=== PATIENT | female | born 1980 | race Caucasian/White ===

== ENCOUNTER 2020-08-09 15:23 | Emergency (ER) | payer OTHER ==
[~2020-08-09] VITALS: Ht 152.4 cm; Wt 77.1 kg
[~2020-08-09 15:23] MED LIST: SYNTHROID50 MCG ORAL; TRAMADOL HCL50 MG ORAL
[2020-08-09] MEDS ORDERED: birth control (15:36)
[2020-08-09] MEDS ORDERED: ATORVASTATIN CA10 MG ORAL (15:36)
[2020-08-09 15:40] VITALS: BP 123/77
[2020-08-09] MEDS ORDERED: BUSPAR10 MG ORAL (15:52)
--- NOTE | 2020-08-09 15:57 | Emergency Room Report ---
History of Present Illness General Chief Complaint: General Complaint Source: Patient Present Illness HPI 40 YO female with pmhx of hypothyroid presents to the ED c/o generalized emotional stress and anxiety. Pt. describes loosing her job, federal aid, her car, and having issues with her housing. Pt. denies hx of anxiety or depression. She denies SI or HI. She denies PSA's or previous psychiatric hospitalizations. She denies familial psych. hx. She reports she is currently taking Synthroid. She reports seeing a "spiritual healer" but not having any relief of her symptoms. Pt. is requesting medication to help reduce her anxiety. She denies CP, palpitations, SOB, wheezing, dizziness, syncope or NG. She denies or suspicion of . She denies currently attempting to become . She reports minimal help from her family. She also reports feeling "so overwhelmed, she is unable to complete daily tasks easily". Pt. denies physical symptoms and states her symptoms manifest only emotionally. She admits to being tearful on occasion. She denies ETOH or illicit drug use. Allergies: Coded Allergies: PENICILLINS (Verified Allergy, Unknown, 02/14/16) COVID-19 Screening Contact w/high risk pt: No Experienced COVID-19 symptoms?: No COVID-19 Testing performed FOOD AND BEVERAGE CONTROLLER: No Patient History Past Medical History: see triage record Past Surgical History: none Now: No Reviewed Nursing Documentation: PMH: Agreed; PSxH: Agreed Nursing Documentation-PMH Past Medical History: No History, Except For History Of Psychiatric Problem: Yes - OCD, depression Review of Systems All Other Systems: negative except mentioned in HPI Physical Exam Vital Signs Date Time Temp Pulse Resp B/P (MAP) Pulse Ox O2 Delivery O2 Flow Rate FiO2 08/09/20 15:30 97.5 84 17 123/77 (92) 99 Room Air Sp02 EP Interpretation: reviewed, normal General Appearance: no apparent distress, alert, GCS 15, non-toxic Head: normocephalic, atraumatic Eyes: bilateral eye normal inspection, bilateral eye PERRL ENT: hearing grossly normal, normal voice Neck: full range of motion Respiratory: chest non-tender, lungs clear, normal breath sounds, speaking full sentences Cardiovascular #1: regular rate, rhythm Genitourinary: normal inspection Musculoskeletal: normal range of motion, gait/station normal, non-tender Neurologic: alert, motor strength/tone normal, oriented x3, sensory intact, responsive, speech normal Psychiatric: judgement/insight normal, memory normal, no suicidal/homicidal ideation, no delusions, anxious - mildly Skin: no rash, normal color, other - no scars or other skin signs that are suggestive of PSA's or self harm Medical Decision Making PA Attestation Dr. Dubois is my supervising Physician whom patient management has been discussed with. Diagnostic Impression: Primary Impression: Anxiety ER Course 40 YO female with pmhx of hypothyroid presents to the ED c/o generalized em otional stress and anxiety. Pt. describes loosing her job, federal aid, her car, and having issues with her housing. Pt. denies hx of anxiety or depression. She denies SI or HI. She denies PSA's or previous psychiatric hospitalizations. She denies familial psych. hx. She reports she is currently taking Synthroid. She reports seeing a "spiritual healer" but not having any relief of her symptoms. Pt. is requesting medication to help reduce her anxiety. She denies CP, palpitations, SOB, wheezing, dizziness, syncope or NG. She denies or suspicion of . She denies currently attempting to become . She reports minimal help from her family. She also reports feeling "so overwhelmed, she is unable to complete daily tasks easily". Pt. denies physical symptoms and states her symptoms manifest only emotionally. She admits to being tearful on occasion. She denies ETOH or illicit drug use. Ddx considered but are not limited to anxiety, IL, PE, asthma, thyroid storm, hyperthyroid, EPS, need for synthroid adjustment, Situational anxiety. Vital signs: are WNL, pt. is afebrile H&PE are most consistent with increased anxiety as a result of economical hardships during current pandemic. She is not tearful during exam and no visible scars to be suspicious for PSA'S/ self harm. She is well dressed. ORDERS: none required at this time, the diagnosis is clinical ED INTERVENTIONS: ' - none required at this time. Pt. is having mild symptoms. d/w pt. she needs psychiatric eval and to see her pmd to check thyroid levels. D/w pt. temp. anti-anxiety rx for a medication known to be safer than its alternatives which are known as addictive and commonly abused. D/w pt. she will get [facility] Resource information. --Pt. given strict ED return precautions for worsening or new symptoms. Also for any increase in depressive symptoms or suicidal thoughts. DISCHARGE: At this time pt. is stable for d/c to home. Will provide printed patient care instructions, and any necessary prescriptions. Care plan and follow up instructions have been discussed with the patient prior to discharge. Last Vital Signs Date Time Temp Pulse Resp B/P (MAP) Pulse Ox O2 Delivery O2 Flow Rate FiO2 08/09/20 15:40 84 17 Room Air 08/09/20 15:40 97.5 123/77 99 Disposition: HOME, SELF-CARE Condition: Stable Scripts Buspirone Hcl* (BUSPAR*) 10 Mg Tablet 10 MG ORAL THREE TIMES A DAY, #21 TAB 0 Refills Prov: Radha Burton 08/09/20 Referrals: [facility] Patient Instructions: Generalized Anxiety Disorder, Depression, Adult, [id number] Additional Instructions: Take medications as directed. *Start with once a day, if needed may increase to 2x per day, and if needed after trying 2x per day for several days, may take 3x per day. Do not drink alcohol, drive, or operate heavy machinery while taking Buspirone ( Anti-anxiety medication),as this may cause drowsiness. Follow up with a clinical documentation improvement specialist within 3-5 days, even if your symptoms have resolved. --Please review [facility] , if you do not already have a primary care provider who can refer you to a psychiatrist who can manage your medications. Return sooner to ED if new symptoms occur, or current symptoms become worse. - Please note that this Emergency Department Report was dictated using [employer] specialist technology software, occasionally this can lead to erroneous entry secondary to interpretation by the dictation equipment. Radha Burton Aug 09, 2020 15:57
== END 2020-08-09 16:00 | disposition home or self-care (01) ==
LOC: EMR 15:50
DX: F41.9 Anxiety disorder, unspecified (principal); F32.9 Major depressive disorder, single episode, unspecified; Z88.0 Allergy status to penicillin; E03.9 Hypothyroidism, unspecified
CPT/HCPCS: 99282

== ENCOUNTER 2020-08-18 15:59 | Emergency (ER) | payer OTHER ==
[~2020-08-18] VITALS: Ht 152.4 cm; Wt 77.1 kg
[~2020-08-18 15:59] MED LIST changes: +ATORVASTATIN CA10 MG ORAL; +BUSPAR10 MG ORAL; +birth control
--- NOTE | 2020-08-18 16:10 | NUR ---
ED Nurse Note: pt presents to ED requesting a refill of her Buspirone 5 mg. states that she was prescribed this medication for the first time last week at [facility], does not have a psychiatrist to f/u with for future med refills. pt reports she last took her meds this AM, has no run out.
[2020-08-18 16:11] VITALS: BP 120/74
--- NOTE | 2020-08-18 16:19 | Emergency Room Report ---
History of Present Illness General Chief Complaint: Medication Refill Source: Patient Present Illness HPI 40-year-old female with history of anxiety currently on BuSpar here requesting a refill on BuSpar. Denies any SI and HI. Patient was last seen in [facility] 1 week ago and was given a week supply however reports that has not yet established a psychiatrist. Patient requested getting a new psychiatrist. Is interested in a list of psychiatric facilities to check into. Patient last took BuSpar yesterday. Denies . Denies tobacco smoke, drug use, alcohol Allergies: Coded Allergies: PENICILLINS (Verified Allergy, Unknown, 02/14/16) COVID-19 Screening Contact w/high risk pt: No Experienced COVID-19 symptoms?: No COVID-19 Testing performed RELAY TESTER: No Patient History Past Medical History: see triage record Past Surgical History: none Pertinent Family History: none Last Menstrual Period: 07/16/20 Now: No Immunizations: UTD Reviewed Nursing Documentation: PMH: Agreed; PSxH: Agreed Nursing Documentation-PMH Past Medical History: No History, Except For Review of Systems All Other Systems: negative except mentioned in HPI Physical Exam Vital Signs Date Time Temp Pulse Resp B/P (MAP) Pulse Ox O2 Delivery O2 Flow Rate FiO2 08/18/20 16:04 99.1 93 20 120/74 (89) 96 Room Air Sp02 EP Interpretation: reviewed, normal General Appearance: well appearing, no apparent distress Head: normocephalic, atraumatic ENT: hearing grossly normal, normal voice Neck: full range of motion, supple Respiratory: no respiratory distress, speaking full sentences Cardiovascular #1: regular rate, rhythm, no edema Gastrointestinal: non tender Rectal: deferred Genitourinary: no CVA tenderness Musculoskeletal: gait/station normal Neurologic: alert, normal gait Psychiatric: mood/affect normal, no suicidal/homicidal ideation, anxious Skin: no rash Lymphatic: no adenopathy Medical Decision Making PA Attestation All my diagnosis and treatment plans were reviewed ad discussed with my supervising physician Dr. Pride Diagnostic Impression: Primary Impression: Encounter for medication refill ER Course 40-year-old female with history of anxiety currently on BuSpar here requesting a refill on BuSpar. Denies any SI and HI. Patient was last seen in [facility] 1 week ago and was given a week supply however reports that has not yet established a psychiatrist. Patient requested getting a new psychiatrist. Is interested in a list of psychiatric facilities to check into. Patient last took BuSpar yesterday. Denies . Denies tobacco smoke, drug use, alcohol intake Ddx considered but are not limited to: generalized anxiety disorder, panic attack, depression with psychotic feature, bipolar disorder, drug overdose Vital signs: are WNL, pt. is afebrile H&PE are most consistent with: Medication refill ORDERS: BuSpar 2-week supply ED INTERVENTIONS: None required at this time. DISCHARGE: At this time pt. is stable for d/c to home. Will provide printed patient care instructions, and any necessary prescriptions. Care plan and follow up instructions have been discussed with the patient prior to discharge. Given list of psychiatric facility, patient to follow-up with psychiatrist for further evaluation, take medication as directed, emergency room Last Vital Signs Date Time Temp Pulse Resp B/P (MAP) Pulse Ox O2 Delivery O2 Flow Rate FiO2 08/18/20 16:11 99.1 86 20 120/74 96 Room Air Disposition: HOME, SELF-CARE Condition: Stable Scripts Buspirone Hcl* (BUSPAR*) 10 Mg Tablet 10 MG ORAL THREE TIMES A DAY for 14 Days, #42 TAB 0 Refills Prov: Blanquita Rivera 08/18/20 Patient Instructions: Medicine Refill at the Emergency Department Additional Instructions: Take medication as ordered, follow-up with your psychiatrist, if worsening symptoms return to the emergency room Blanquita Rivera Aug 18, 2020 16:19
[2020-08-18] MEDS ORDERED: BUSPAR10 MG ORAL (16:20)
[2020-08-18 16:25] VITALS: BP 120/74
--- NOTE | 2020-08-18 16:25 | NUR ---
ER DISCHARGE NOTE: Patient is cleared to be discharged per ERMD, pt is aox4, on room air, with stable vital signs. pt was given dc and prescription instructions, pt was able to verbalize understanding of teachings. pt was also provided with f/u clinics for future medication refills. pt id band removed without complications. pt is able to ambulate with steady gait. pt took all belongings.
== END 2020-08-18 16:25 | disposition home or self-care (01) ==
LOC: EMR 16:15
DX: F41.9 Anxiety disorder, unspecified (principal); Z76.0 Encounter for issue of repeat prescription; Z88.0 Allergy status to penicillin
CPT/HCPCS: 99282

== ENCOUNTER 2020-09-01 16:00 | Emergency (ER) | payer OTHER ==
[~2020-09-01] VITALS: Ht 167.6 cm; Wt 77.1 kg
--- NOTE | 2020-09-01 16:26 | NUR ---
ED Nurse Note: pt is at waiting room at this time.
[2020-09-01 17:32] VITALS: BP 115/70
--- NOTE | 2020-09-01 17:32 | NUR ---
ED Nurse Note: pt walked in to ed requesting refill of buspar 10mg tid.
[2020-09-01] MEDS ORDERED: BUSPAR10 MG ORAL (17:58)
--- NOTE | 2020-09-01 17:58 | Emergency Room Report ---
History of Present Illness General Chief Complaint: Medication Refill Source: Patient Present Illness HPI 40-year-old female with history of anxiety currently on BuSpar here requesting medication refill. Patient has been here every week for medication refill and reports that" her primary doctor cannot help her and she does not like to go to her." Also reports that he tried going to [facility] however did not want to go there. Denies any SI and HI. Is aware that cannot continue getting refills of BuSpar only in the emergency room setting. Denies . Allergies: Coded Allergies: PENICILLINS (Verified Allergy, Unknown, 02/14/16) COVID-19 Screening Contact w/high risk pt: No Experienced COVID-19 symptoms?: No COVID-19 Testing performed REMOTE CONTROL MIRROR INSTALLER: No Patient History Past Surgical History: none Pertinent Family History: none Last Menstrual Period: 08/29/20 Now: No Reviewed Nursing Documentation: PMH: Agreed; PSxH: Agreed Nursing Documentation-PMH History Of Psychiatric Problem: Yes - anxiety Review of Systems All Other Systems: negative except mentioned in HPI Physical Exam Vital Signs Date Time Temp Pulse Resp B/P (MAP) Pulse Ox O2 Delivery O2 Flow Rate FiO2 09/01/20 16:22 99.0 71 16 110/72 (85) 99 Room Air Sp02 EP Interpretation: reviewed, normal General Appearance: well appearing, no apparent distress Head: normocephalic, atraumatic ENT: hearing grossly normal, normal voice Neck: full range of motion, supple Respiratory: no respiratory distress, speaking full sentences Cardiovascular #1: normal inspection Gastrointestinal: non tender Genitourinary: normal inspection Musculoskeletal: gait/station normal Neurologic: alert, normal gait Psychiatric: no suicidal/homicidal ideation, anxious Skin: no rash Lymphatic: no adenopathy Medical Decision Making PA Attestation All my diagnosis and treatment plans were reviewed ad discussed with my supervising physician Dr. Ramos Diagnostic Impression: Primary Impression: Encounter for medication refill Additional Impression: Anxiety ER Course 40-year-old female with history of anxiety currently on BuSpar here requesting medication refill. Patient has been here every week for medication refill and reports that" her primary doctor cannot help her and she does not like to go to her." Also reports that he tried going to [facility] facility however did not want to go there. Denies any SI and HI. Is aware that cannot continue getting refills of BuSpar only in the emergency room setting. Denies . Ddx considered but are not limited to: generalized anxiety disorder, panic attack, depression with psycotic featurs, bipolar disorder, drug overdose Vital signs: are WNL, pt. is afebrile H&PE are most consistent with: Medication refill for anxiety ORDERS: BuSpar 7-day supply ED INTERVENTIONS: None required at this time. DISCHARGE: At this time pt. is stable for d/c to home. Will provide printed patient care instructions, and any necessary prescriptions. Care plan and follow up instructions have been discussed with the patient prior to discharge. Given list of mental health facilities to patient, advised patient to follow primary doctor, if worsening symptoms return to the emergency room Last Vital Signs Date Time Temp Pulse Resp B/P (MAP) Pulse Ox O2 Delivery O2 Flow Rate FiO2 09/01/20 17:32 98.7 86 17 115/70 98 Room Air Disposition: HOME, SELF-CARE Condition: Stable Scripts Buspirone Hcl* (BUSPAR*) 10 Mg Tablet 10 MG ORAL THREE TIMES A DAY for 7 Days, #21 TAB 0 Refills Prov: Blanquita Rivera 09/01/20 Referrals: [facility]ERR[facility] (PCP) Patient Instructions: Medicine Refill at the Emergency Department Additional Instructions: Follow-up with your psychiatrist, take medication as directed, if worsening symptoms return to emergency room Blanquita Rivera Sep 01, 2020 17:58
[2020-09-01 18:02] VITALS: BP 122/76
--- NOTE | 2020-09-01 18:02 | NUR ---
ER DISCHARGE NOTE: Patient is cleared to be discharged per ERMD, pt is aox4, on room air, with stable vital signs. pt was given dc and prescription instructions, pt was able to verbalize understanding, pt id band removed without complications. pt is able to ambulate with steady gait. pt took all belongings.
== END 2020-09-01 18:02 | disposition home or self-care (01) ==
LOC: EMR 16:57
DX: F41.9 Anxiety disorder, unspecified (principal); Z76.0 Encounter for issue of repeat prescription; Z88.0 Allergy status to penicillin
CPT/HCPCS: 99282

== ENCOUNTER 2020-11-03 21:25 | Emergency (ER) | payer OTHER ==
[~2020-11-03] VITALS: Ht 154.9 cm; Wt 77.1 kg
--- NOTE | 2020-11-03 21:52 | NUR ---
ED Nurse Note: Patient walked into ED for medication refill of zoloft. She states she usually takes 25mg and has run out of her prescription. She is unable to see her doctor for another two weeks. She is aaox4, denies suicidal or homicidal ideations. Patient is calm and cooperative. Her breathing is normal and unlabored, vital signs are stable. No acute distress or pain noted.
[2020-11-03 21:56] VITALS: BP 120/75
--- NOTE | 2020-11-03 22:05 | Emergency Room Report ---
History of Present Illness General Chief Complaint: Medication Refill Source: Patient Present Illness HPI Patient presents requesting a refill of Zoloft. She can't see her doctor for 2 weeks and needs this medication. She is no longer taking BuSpar. She denies suicidal or homicidal ideation at this time. She is eating well. She is sleeping well. She suffers from anxiety. Patient denies exposure to COVID-19 positive contacts. No fevers, chills, sore throat, chest pain, palpitations, nausea, vomiting, diarrhea, dysuria, abdominal pain, shortness of breath, joint pain, rashes, visual changes, dizziness, headache. 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 Period: 09/2020 Now: No Reviewed Nursing Documentation: PMH: Agreed; PSxH: Agreed Nursing Documentation-PMH Past Medical History: No History, Except For Review of Systems All Other Systems: negative except mentioned in HPI Physical Exam Vital Signs Date Time Temp Pulse Resp B/P (MAP) Pulse Ox O2 Delivery O2 Flow Rate FiO2 11/03/20 21:44 98.6 90 18 120/75 (90) 95 Room Air Sp02 EP Interpretation: reviewed, normal General Appearance: well appearing, no apparent distress, GCS 15 Head: normocephalic Eyes: bilateral eye normal inspection, bilateral eye PERRL ENT: other - Wearing a mask Neck: normal inspection Respiratory: lungs clear, normal breath sounds Cardiovascular #1: regular rate, rhythm Cardiovascular #2: 2+ radial (R) Gastrointestinal: normal inspection Musculoskeletal: gait/station normal Neurologic: alert, grossly normal Psychiatric: mood/affect normal, no suicidal/homicidal ideation Skin: normal color, no rash, other - Tattoos Medical Decision Making Diagnostic Impression: Primary Impression: Encounter for medication refill Additional Impression: Anxiety ER Course Patient with history of anxiety presenting requesting a refill of Zoloft. She denies any somatic complaints at this time denies suicidal ideation. Patient given a refill of Zoloft. Patient stable for outpatient observation and treatment. Last Vital Signs Date Time Temp Pulse Resp B/P (MAP) Pulse Ox O2 Delivery O2 Flow Rate FiO2 11/03/20 22:09 98.6 90 18 120/75 95 Room Air Status: unchanged Disposition: HOME, SELF-CARE Condition: Stable Scripts Sertraline Hcl* (ZOLOFT*) 25 Mg Tablet 25 MG ORAL DAILY, #20 TAB Prov: Jony Garcia MD 11/03/20 Jony Garcia MD Nov 03, 2020 22:05
[2020-11-03] MEDS ORDERED: ZOLOFT25 MG ORAL (22:06)
[2020-11-03 22:09] VITALS: BP 120/75
== END 2020-11-03 22:09 | disposition home or self-care (01) ==
LOC: EMR 22:07
DX: Z76.0 Encounter for issue of repeat prescription (principal); F41.9 Anxiety disorder, unspecified; Z88.0 Allergy status to penicillin
CPT/HCPCS: 99282

== ENCOUNTER 2020-11-07 16:05 | Emergency (ER) | payer OTHER ==
[~2020-11-07] VITALS: Ht 152.4 cm; Wt 77.1 kg
[~2020-11-07 16:05] MED LIST changes: +ZOLOFT25 MG ORAL
[2020-11-07 16:50] VITALS: BP 113/76
[2020-11-07 16:51] VITALS: BP 120/70
--- NOTE | 2020-11-07 16:55 | Emergency Room Report ---
History of Present Illness General Chief Complaint: Medication Refill Source: Patient Present Illness HPI Disclaimer: Please note that this report is being documented using [employer] technology. This can lead to erroneous entry secondary to incorrect interpretation by the dictating instrument. HPI: 40-year-old female presents requesting medication refill. She states she took her last dose of control (Viorele) this morning. She is requesting a month's refill. She stated that her PIPE LAYER would not refill her medication for some reason. She states she had an appointment to see her PIPE LAYER Monday morning, in 2 days. Denies bleeding, abdominal pain or other symptoms at this time. I discussed with the patient that chronic medications are not filled in the emergency department and if her PIPE LAYER refused to refill her medications for unknown reason may not be appropriate for me to do so. Patient then stated that she would not see her PIPE LAYER for 2 more weeks. She would not explain why she originally said she would see them in 2 days. Patient became very angry stating that she usually gets her medications filled in the ER and that has not been a problem in the past. I explained to her that I did not feel comfortable refilling her prescription for control that she was refused by her PIPE LAYER and recommend that she followed up with PIPE LAYER. I also offered to provide resources to other PIPE LAYER's in the area though the patient refused and left to the emergency department through the ambulance bay without discharge paperwork. PMH: Anxiety and depression PSH: Reviewed chart Allergies: Penicillin Allergies: Coded Allergies: PENICILLINS (Verified Allergy, Unknown, 02/14/16) COVID-19 Screening Contact w/high risk pt: No Experienced COVID-19 symptoms?: No COVID-19 Testing performed RESOLUTION ANALYST: No Patient History Now: No Review of Systems All Other Systems: negative except mentioned in HPI Physical Exam Vital Signs Date Time Temp Pulse Resp B/P (MAP) Pulse Ox O2 Delivery O2 Flow Rate FiO2 11/07/20 16:45 98.1 76 16 113/76 (88) 98 Room Air General: Awake and alert, no acute distress HEENT: NC/AT. EOMI. Resp: Normal work of breathing Skin: Intact. No abrasions, laceration or rash over the exposed skin MSK: Normal tone and bulk. Moving all extremities. No obvious deformity. Neuro: Awake and alert. Mentating appropriately Medical Decision Making Diagnostic Impression: Primary Impression: Encounter for medication refill ER Course 40-year-old female presents requesting refill of control medication. O riginally she stated she would see her PIPE LAYER in 2 days and then amended her statement after I discussed with her that refilling chronic medication in the emergency department is an appropriate as I am not sure why her PIPE LAYER would refuse to refill her control. Discussed with her that there may be a specific reason for discontinuing this medication or for refusal of refill to which the patient became very upset and frustrated and left the emergency department without receiving discharge paperwork. Last Vital Signs Date Time Temp Pulse Resp B/P (MAP) Pulse Ox O2 Delivery O2 Flow Rate FiO2 11/07/20 16:45 98.1 76 16 113/76 (88) 98 Room Air Disposition: HOME, SELF-CARE Condition: Stable Graham Gotti MD Nov 07, 2020 16:55
== END 2020-11-07 17:00 | disposition home or self-care (01) ==
LOC: EMR 16:52
DX: Z76.0 Encounter for issue of repeat prescription (principal); Z88.0 Allergy status to penicillin
CPT/HCPCS: 99281